=== PATIENT | male | born 1985 | race African-American/Black ===

== ENCOUNTER → 2021-09-02 | Day surgery (SDC) | payer BC ==
[~2021-09-02] MED LIST: LOSA100T14 PO; OMEP20CA16 PO
[2021-09-02 08:59] VITALS: BP 156/98
== END | disposition home or self-care (01) ==
LOC: SURG 08:50
PROVIDERS: ATTEND Anesthesiology
DX: M54.12 Radiculopathy, cervical region (principal); I10 Essential (primary) hypertension; K21.9 Gastro-esophageal reflux disease without esophagitis; F41.9 Anxiety disorder, unspecified; F10.10 Alcohol abuse, uncomplicated; Z98.890 Other specified postprocedural states; Z79.899 Other long term (current) drug therapy
CPT/HCPCS: 99204; G0463